=== PATIENT | female | born 1985 | race Caucasian/White ===

== ENCOUNTER 2017-04-21 15:34 | Outpatient (CLI) | payer OTHER | END 2017-04-21 17:10 | disposition home or self-care (01) | LOC: OBT 15:34 → L-D 15:37 → OBT 17:10 | DX: O36.8320 Maternal care for abnormalities of the fetal heart rate or rhythm, second trimester, not applicable or unspecified (principal); Z3A.18 18 weeks gestation of pregnancy | CPT/HCPCS: 76815 ==

== ENCOUNTER 2017-07-01 10:47 | Outpatient (CLI) | payer OTHER | END 2017-07-01 12:05 | disposition home or self-care (01) | LOC: OBT 10:47 → L-D 10:47 → OBT 12:05 | DX: O26.893 Other specified pregnancy related conditions, third trimester (principal); R10.30 Lower abdominal pain, unspecified; O30.003 Twin pregnancy, unspecified number of placenta and unspecified number of amniotic sacs, third trimester; Z3A.28 28 weeks gestation of pregnancy | CPT/HCPCS: 76818 ==

== ENCOUNTER 2017-09-08 05:51 | Inpatient (IN) | payer OTHER ==
[2017-09-08] MEDS ORDERED: OXYTOCIN 30 UNITS/LR 500 ML BAG IV (07:00)
[2017-09-08] MEDS ORDERED: MISOPROSTOL 200 MCG TAB PR ×2 (07:30→14:30)
[2017-09-08] MEDS ORDERED: CARBOPROST 250 MCG INJ IM ×2 (07:30→14:30)
[2017-09-08] MEDS ORDERED: METHYLERGONOVINE 0.2 MG INJ IM ×2 (07:30→14:30)
[2017-09-08] MEDS ORDERED: OXYTOCIN 30 UNITS/LR 500 ML IV ×2 (07:30→14:30)
[2017-09-08] MEDS: LACTATED RINGER'S 1,000 ML IV (08:03)
[2017-09-08 08:18] LABS: ADD MAN DIFF? NO
[2017-09-08 08:19] LABS: BASOPHILS % 0.3 % (0.0-2.0); EOSINOPHILS % 0.3 % (0.0-7.0); HEMATOCRIT 33.5 % (37.0-47.0); HEMOGLOBIN 11.2 g/dl (12.0-16.0); LYMPHOCYTES # 1.7 10^3/ul (0.8-2.9); LYMPHOCYTES % 22.5 % (15.0-51.0); MEAN CORPUSCULAR HEMOGLOBIN 28.2 pg (29.0-33.0); MEAN CORPUSCULAR HGB CONC 33.4 g/dl (32.0-37.0); MEAN CORPUSCULAR VOLUME 84.4 fl (82.0-101.0); MEAN PLATELET VOLUME 9.7 fl (7.4-10.4); MONOCYTE # 0.4 10^3/ul (0.3-0.9); MONOCYTES % 5.5 % (0.0-11.0); NEUTROPHIL # 5.4 10^3/ul (1.6-7.5); NEUTROPHILS % 71.1 % (39.0-77.0); PLATELET COUNT 202 10^3/UL (140-415); RED BLOOD COUNT 3.97 10^6/ul (4.20-5.40); RED CELL DISTRIBUTION WIDTH 13.6 % (11.5-14.5)
[2017-09-08 08:19] LABS: WHITE BLOOD COUNT 7.6 10^3/ul (4.8-10.8)
[2017-09-08 08:38] LABS: INR 0.93; PARTIAL THROMBOPLASTIN TIME 24.1 Sec (25.0-35.0); PROTIME 12.5 Sec (11.9-14.9)
[2017-09-08] MEDS ORDERED: PHENYLephrine (100 MCG/ML) 10ML SYG (09:26)
[2017-09-08] MEDS ORDERED: BUPIVACAINE 0.75%/DEXT (SPINAL) 2 ML INJ (09:27)
[2017-09-08] MEDS ORDERED: OXYTOCIN 10 UNIT INJ (09:27)
[2017-09-08] MEDS ORDERED: morphine SULFATE/PF (10 MG/10 ML) INJ (09:27)
[2017-09-08 09:32] LABS: HEPATITIS B SURFACE ANTIGEN NEGATIVE (NEGATIVE)
[2017-09-08] MEDS ORDERED: ONDANSETRON 4 MG INJ (09:44)
[2017-09-08] MEDS: CEFAZOLIN 2 GM/50 ML (PMX) 50 ML IV (10:04)
[2017-09-08] MEDS ORDERED: DIPHENHYDRAMINE 50 MG INJ (10:55)
[2017-09-08] MEDS ORDERED: NALOXONE (0.4 MG/ML) INJ IV (12:30)
[2017-09-08] MEDS ORDERED: ONDANSETRON 4 MG INJ IV (12:30)
[2017-09-08] MEDS ORDERED: morphine 2 MG INJ IV (12:30)
[2017-09-08] MEDS: OXYTOCIN 30 UNITS/LR 500 ML IV ×4 (13:30→23:21)
[2017-09-08] MEDS ORDERED: LANOLIN 7 GM TUBE TOP (14:30)
[2017-09-08] MEDS ORDERED: HYDROCODONE/APAP (5/325) TAB PO ×4 (14:30)
[2017-09-08] MEDS ORDERED: OXYCODONE/ACETAMINOPHEN (5/325) TAB PO ×3 (14:30)
[2017-09-08 15:25] LABS: RAPID PLASMA REAGIN NONREACTIVE (NR)
[2017-09-08] MEDS: DIPHENHYDRAMINE 50 MG INJ IV ×2 (17:23→23:22)
[2017-09-08] MEDS: KETOROLAC 30 MG INJ IV ×2 (17:27→23:14)
[2017-09-08] MEDS: CEFAZOLIN 1 GM/50 ML (PMX) 50 ML IVPB (17:28)
[2017-09-08] MEDS: IBUPROFEN 600 MG TAB PO (18:00)
[2017-09-08] MEDS ORDERED: SENNA/DOCUSATE NA (8.6MG/50MG) TAB PO (21:00)
[2017-09-08] MEDS: SENNA/DOCUSATE NA (8.6MG/50MG) TAB PO (21:11)
[2017-09-09] MEDS: OXYTOCIN 30 UNITS/LR 500 ML IV ×2 (03:47→06:22)
[2017-09-09] MEDS: LANOLIN 7 GM TUBE TOP (05:43)
[2017-09-09] MEDS: DIPHENHYDRAMINE 50 MG INJ IV (05:43)
[2017-09-09] MEDS: IBUPROFEN 600 MG TAB PO ×4 (06:00→18:11)
[2017-09-09] MEDS: KETOROLAC 30 MG INJ IV (07:04)
[2017-09-09] MEDS: LACTATED RINGER'S 1,000 ML IV (08:21)
[2017-09-09 08:33] LABS: ADD MAN DIFF? NO
[2017-09-09 08:38] LABS: WHITE BLOOD COUNT 9.2 10^3/ul (4.8-10.8)
[2017-09-09 08:38] LABS: BASOPHILS % 0.1 % (0.0-2.0); EOSINOPHILS % 0.1 % (0.0-7.0); HEMATOCRIT 30.8 % (37.0-47.0); LYMPHOCYTES % 11.1 % (15.0-51.0); MEAN CORPUSCULAR HEMOGLOBIN 27.8 pg (29.0-33.0); MEAN CORPUSCULAR HGB CONC 32.5 g/dl (32.0-37.0); MEAN CORPUSCULAR VOLUME 85.6 fl (82.0-101.0); MEAN PLATELET VOLUME 9.5 fl (7.4-10.4); MONOCYTE # 0.6 10^3/ul (0.3-0.9); MONOCYTES % 6.2 % (0.0-11.0); NEUTROPHIL # 7.6 10^3/ul (1.6-7.5); NEUTROPHILS % 82.2 % (39.0-77.0); PLATELET COUNT 165 10^3/UL (140-415); RED CELL DISTRIBUTION WIDTH 13.5 % (11.5-14.5)
[2017-09-09] MEDS: SENNA/DOCUSATE NA (8.6MG/50MG) TAB PO ×2 (09:27→20:36)
[2017-09-09] MEDS: OXYCODONE/ACETAMINOPHEN (5/325) TAB PO ×3 (10:45→22:20)
[2017-09-09] MEDS ORDERED: IBUPROFEN 600 MG TAB PO (12:00)
[2017-09-10] MEDS: IBUPROFEN 600 MG TAB PO ×4 (00:08→17:20)
[2017-09-10] MEDS: OXYCODONE/ACETAMINOPHEN (5/325) TAB PO ×5 (03:52→23:34)
[2017-09-10] MEDS: SENNA/DOCUSATE NA (8.6MG/50MG) TAB PO ×2 (09:01→21:16)
[2017-09-11] MEDS: IBUPROFEN 600 MG TAB PO ×3 (06:30→11:53)
[2017-09-11] MEDS: SENNA/DOCUSATE NA (8.6MG/50MG) TAB PO (08:56)
[2017-09-11] MEDS: OXYCODONE/ACETAMINOPHEN (5/325) TAB PO ×2 (08:56→12:53)
[2017-09-11] MEDS: DIPHTH/TET/ACEL PERTUSS (ADULT) 0.5 ML VIAL IM* (09:00)
== END 2017-09-11 14:15 | disposition home or self-care (01) | DRG 765 ==
LOC: L-D 05:51 → PP1 14:19
PROVIDERS: Obstetrics & Gynecology
PROC: 10D00Z1 Extraction of Products of Conception, Low, Open Approach (ICD-10-PCS; principal; 2017-09-08 09:00)
PROC: 0UB70ZZ Excision of Bilateral Fallopian Tubes, Open Approach (ICD-10-PCS; 2017-09-08 09:00)
PROC: 4A1HXCZ Monitoring of Products of Conception, Cardiac Rate, External Approach (ICD-10-PCS; 2017-09-08 09:00)
DX: O34.219 Maternal care for unspecified type scar from previous cesarean delivery (principal); Z68.41 Body mass index [BMI] 40.0-44.9, adult; Z3A.39 39 weeks gestation of pregnancy; Z37.0 Single live birth; O99.214 Obesity complicating childbirth; E66.01 Morbid (severe) obesity due to excess calories; Z30.2 Encounter for sterilization
CPT/HCPCS: 85025; 85610; 85730; 86592; 86850; 86900; 86901; 87340; 88302; 99464